=== PATIENT | male | born 1975 | race Two or more races ===

== ENCOUNTER 2021-11-15 14:20 | Emergency (ER) | payer OTHER ==
[~2021-11-15] VITALS: Ht 172.7 cm; Wt 59.0 kg
--- NOTE | 2021-11-15 14:48 | NUR ---
TO ER 18 AWAITING MD SANTORO,SECURITY CALLED FOR WANDING AND CONTRABAND REMOVAL,SITTER AT BEDSIDE.
--- NOTE | 2021-11-15 14:58 | NUR ---
COVID SWAB DONE AND SENT TO LAB
--- NOTE | 2021-11-15 14:58 | NUR ---
URINE COLLECTED AND SENT TO LAB
[2021-11-15] MEDS ORDERED: OLANZAPINE 10 MG VIAL IM ONE (15:03)
[2021-11-15] MEDS: OLANZAPINE 10 MG VIAL IM ONE (15:08)
[2021-11-15 15:31] LABS: BASOPHILS # (AUTO) 0.1 K/uL (0.0-0.2); BASOPHILS % (AUTO) 0.9 % (0.0-2.0); EOSINOPHILS % (AUTO) 13.3 % (0.0-6.0); HEMATOCRIT 42 % (39-51); HEMOGLOBIN 13.9 g/dL (13.5-17.5); LYMPHOCYTES # (AUTO) 2.6 K/uL (0.8-4.8); MEAN CORPUSCULAR HGB CONC 33 g/dl (31.0-36.0); MEAN CORPUSCULAR VOLUME 90 fL (80-96); MONOCYTES # (AUTO) 0.8 K/uL (0.1-1.30); MONOCYTES % (AUTO) 13.2 % (2.0-12.0); NEUTROPHILS % (AUTO) 31.6 % (43.0-81.0); PLATELET COUNT (AUTO) 332 K/uL (150-450); RED BLOOD CELL COUNT(AUTO) 4.67 MIL/uL (4.5-6.0); WHITE BLOOD COUNT (AUTO) 6.3 K/uL (4.3-11.0)
[2021-11-15 15:52] LABS: CARBON DIOXIDE 30 mmol/L (21-32); CHLORIDE 105 mmol/L (98-107); GLUCOSE 96 mg/dL (74-106); POTASSIUM 3.9 mmol/L (3.5-5.1); SODIUM SERUM 139 mmol/L (136-145); UREA NITROGEN, BLOOD 16 mg/dL (7-18)
[2021-11-15 15:58] LABS: ALANINE AMINOTRANSFERASE 25 U/L (12-78); ALBUMIN 3.4 g/dL (3.4-5.0); ALKALINE PHOSPHATASE 104 U/L (46-116); ASPARTATE AMINOTRANSFERASE 20 U/L (15-37); BILIRUBIN,DIRECT 0.1 mg/dL (0.0-0.2); BILIRUBIN,TOTAL 0.2 mg/dL (0.2-1.0)
[2021-11-15 16:01] LABS: ACETAMINOPHEN < 0 ug/ml (10-30); ALCOHOL, BLOOD < 3 mg/dL (0-0)
[2021-11-15 16:27] LABS: BILIRUBIN,URINE NEGATIVE (NEGATIVE); COLOR,URINE YELLOW (YELLOW); LEUKOCYTE ESTERASE ,URINE NEGATIVE (NEGATIVE); NITRITE, URINE NEGATIVE (NEGATIVE); PH,URINE 6.5 (5.0-8.0); PROTEIN,URINE NEGATIVE (NEGATIVE); UGLUCOSE NEGATIVE (NEGATIVE); UROBILINOGEN,URINE 0.2 EU/dL (0.2)
[2021-11-15 18:57] VITALS: BP 116/80
--- NOTE | 2021-11-15 19:40 | NUR ---
PT IS PICKED UP BY [facility]. ALL BELONGINGS AND PATIENT PACKETS GIVEN
== END 2021-11-15 19:41 ==
LOC: ER 14:26
DX: R44.0 Auditory hallucinations (principal); Z20.822 Contact with and (suspected) exposure to COVID-19; J45.909 Unspecified asthma, uncomplicated
CPT/HCPCS: 99285; 96372; 85025; 80048; 80076; 81003; 36415; 87426; 80143; 80320; 80307; J3490; C9803; G0480

== ENCOUNTER 2021-12-05 23:10 | Emergency (ER) | payer OTHER ==
[~2021-12-05] VITALS: Ht 172.7 cm; Wt 59.0 kg
--- NOTE | 2021-12-05 23:15 | NUR ---
BIBRA39. MID ABDOMINAL PAIN X 2 DAYS SHARP 01/26. -N/V/D. PT A/OX4. TOELRATING R/A WELL AT 95%. CONNECTED PT TO POX AND MONITOR. SAFETY MEASURES IN PLACE.
[2021-12-05] MEDS ORDERED: IV NS 0.9% 500 ML BAG IV ONE (23:30)
[2021-12-05] MEDS ORDERED: ONDANSETRON HCL/PF 4 MG/2 ML VIAL IVP ONE (23:30)
[2021-12-05] MEDS ORDERED: MORPHINE SULFATE INJ 2 MG/ML DISP.SYRIN IV ONE (23:30)
[2021-12-05] MEDS ORDERED: ONDANSETRON HCL/PF 4 MG/2 ML VIAL ONE (23:31)
[2021-12-05] MEDS ORDERED: MORPHINE SULFATE INJ 2 MG/ML DISP.SYRIN ONE (23:32)
--- NOTE | 2021-12-05 23:45 | NUR ---
BLOOD DRAWN AND SENT TO LAB
--- NOTE | 2021-12-05 23:55 | NUR ---
OFFERED PT URINAL; NOT ABLE TO URINATE AT THIS TIME. WILL F/U WITH URINE SAMPLE.
[2021-12-06] LABS: BASOPHILS # (AUTO) 0.1 K/uL (0.0-0.2); BASOPHILS % (AUTO) 0.8 % (0.0-2.0); EOSINOPHILS % (AUTO) 3.3 % (0.0-6.0); HEMATOCRIT 39 % (39-51); HEMOGLOBIN 13.3 g/dL (13.5-17.5); LYMPHOCYTES # (AUTO) 2.3 K/uL (0.8-4.8); LYMPHOCYTES % (AUTO) 28.1 % (20.0-44.0); MEAN CORPUSCULAR HGB CONC 34 g/dl (31.0-36.0); MEAN CORPUSCULAR VOLUME 88 fL (80-96); MONOCYTES # (AUTO) 0.8 K/uL (0.1-1.30); MONOCYTES % (AUTO) 9.9 % (2.0-12.0); NEUTROPHILS # (AUTO) 4.7 K/uL (1.8-8.9); NEUTROPHILS % (AUTO) 57.9 % (43.0-81.0); PLATELET COUNT (AUTO) 317 K/uL (150-450); RED BLOOD CELL COUNT(AUTO) 4.41 MIL/uL (4.5-6.0); WHITE BLOOD COUNT (AUTO) 8.1 K/uL (4.3-11.0)
[2021-12-06 00:10] LABS: CALCIUM, SERUM 8.6 mg/dL (8.5-10.1); CREATININE 1.2 mg/dL (0.6-1.3); POTASSIUM 4.1 mmol/L (3.5-5.1)
[2021-12-06 00:16] LABS: ALBUMIN 3.1 g/dL (3.4-5.0); BILIRUBIN,DIRECT 0.1 mg/dL (0.0-0.2); BILIRUBIN,TOTAL 0.4 mg/dL (0.2-1.0)
--- NOTE | 2021-12-06 01:13 | NUR ---
URINE COLLECTED AND SENT TO LAB
[2021-12-06 01:29] LABS: BILIRUBIN,URINE NEGATIVE (NEGATIVE); COLOR,URINE YELLOW (YELLOW); LEUKOCYTE ESTERASE ,URINE NEGATIVE (NEGATIVE); NITRITE, URINE NEGATIVE (NEGATIVE); PH,URINE 6.5 (5.0-8.0); PROTEIN,URINE TRACE mg/dl (NEGATIVE); UGLUCOSE NEGATIVE (NEGATIVE); UROBILINOGEN,URINE 0.2 EU/dL (0.2)
--- NOTE | 2021-12-06 01:30 | NUR ---
PT C/O OF S/I WITH NO SPECIFIC PLAN. PT CHANGED IN GOWN, BELONGINGS COLLECTED AND SENT TO LOCKER, WANDED BY SECURITY.
--- NOTE | 2021-12-06 01:33 | NUR ---
COVID ANTIGEN SWAB COLLECTED AND SENT TO LAB
[2021-12-06 01:35] LABS: BACTERIA,URINE Rare /HPF (None Seen); RBC,URINE 0-2 /HPF (0-2); SQUAMOUS EPITHELIAL CELL,UR Few /HPF (None Seen); WBC,URINE 0-2 /HPF (0-3)
[2021-12-06] MEDS ORDERED: AZITHROMYCIN 500 MG VIAL ONE (01:37)
[2021-12-06] MEDS ORDERED: CEFTRIAXONE 1GM BAG (ER ONLY) 50 ML IV ONE (01:37)
--- NOTE | 2021-12-06 01:56 | NUR ---
ROBOTICS MECHANIC AT PT'S BEDSIDE
[2021-12-06] MEDS ORDERED: AZITHROMYCIN 500 MG in IV D5W 250 ML IV ONE (02:00)
[2021-12-06] MEDS ORDERED: CEFTRIAXONE 1 G in IV D5W 50 ML IV ONE (02:00)
[2021-12-06 03:06] LABS: ACETAMINOPHEN 0 ug/ml (10-30); ALCOHOL, BLOOD < 3 mg/dL (0-0)
--- NOTE | 2021-12-06 04:50 | NUR ---
PER [facility] ([facility]) PATIENT ACCEPTED TO [facility] ROOM 4511 NUMBER FOR REPORT: [phone] EXT [phone] THEY WILL BE SETTING UP TRANSPORT WILL CALL BACK WHEN READY.
--- NOTE | 2021-12-06 05:24 | NUR ---
REPORT GIVEN TO RN AT [facility]
--- NOTE | 2021-12-06 07:20 | NUR ---
RECIVED PT FROM KATI RN PT AWAKE AND ALERT RESPIRATION SPONT AND EASY WITH ON ROM AIR
--- NOTE | 2021-12-06 08:25 | NUR ---
PT AWRE ABOUT TRANSFER O [facility] AND CONSENT FOR WAS SIGNED
--- NOTE | 2021-12-06 08:27 | NUR ---
COURTNEY FROM [facility] NURSING OFFICE NUMBER: [phone] AWAITING TRANSPO INFO FROM COMPUTATIONAL GENETICIST, WILL UPDATE [facility] FOR PATIENT ETA.
--- NOTE | 2021-12-06 08:43 | NUR ---
TRANSPORT ETA 1000 PER [facility] ([facility])
--- NOTE | 2021-12-06 09:20 | NUR ---
VS STABLE NO PAIN NO COGHING
[2021-12-06 10:10] VITALS: BP 100/66
--- NOTE | 2021-12-06 10:38 | NUR ---
TRNSFER TO [facility] STABLE VS NO SOB O2 SAT 98% WITH FIO2 2LNC WITH ALL BILONGING PT FULLY AWAKE AND ALERT
== END 2021-12-06 10:41 | disposition short-term general hospital (02) ==
LOC: ER 23:18
DX: J18.9 Pneumonia, unspecified organism (principal); I88.0 Nonspecific mesenteric lymphadenitis; Z20.822 Contact with and (suspected) exposure to COVID-19; J45.909 Unspecified asthma, uncomplicated
CPT/HCPCS: 99285; 96375; 74176; 85025; 80048; 83690; 80076; 36415 ×2; 85730; 96365; 96368; 71045; 87040 ×2; 83605; 81001; 87426; 80143; 80320; 80307; J2405; J7040; J2270; J0696; J7060; J0456; C9803; G0480

== ENCOUNTER 2021-12-08 22:51 | Emergency (ER) | payer OTHER ==
[~2021-12-08] VITALS: Ht 170.2 cm; Wt 65.8 kg
--- NOTE | 2021-12-08 23:08 | NUR ---
Patient caem in to the er c/o +SI "i want to run in front of the traffic", i want to go voluntary admission to [facility]. on room air, breathing evenly and unlabored. Kept comfortable, will continue to monitor accordingly.
[2021-12-08 23:11] VITALS: BP 128/88
--- NOTE | 2021-12-08 23:11 | NUR ---
security at bedside for wanding.
--- NOTE | 2021-12-08 23:13 | NUR ---
urine and covid swab collected and sent to lab.
[2021-12-08] MEDS ORDERED: OLANZAPINE 5 MG TABLET PO ONE (23:30)
[2021-12-08] MEDS ORDERED: OLANZAPINE 5 MG TABLET ONE (23:30)
[2021-12-08 23:48] LABS: BASOPHILS % (AUTO) 0.8 % (0.0-2.0); EOSINOPHILS % (AUTO) 13.5 % (0.0-6.0); HEMATOCRIT 38 % (39-51); HEMOGLOBIN 12.8 g/dL (13.5-17.5); LYMPHOCYTES # (AUTO) 1.9 K/uL (0.8-4.8); LYMPHOCYTES % (AUTO) 38.3 % (20.0-44.0); MEAN CORPUSCULAR HGB CONC 34 g/dl (31.0-36.0); MEAN CORPUSCULAR VOLUME 88 fL (80-96); MONOCYTES # (AUTO) 0.8 K/uL (0.1-1.30); MONOCYTES % (AUTO) 16.6 % (2.0-12.0); NEUTROPHILS # (AUTO) 1.6 K/uL (1.8-8.9); NEUTROPHILS % (AUTO) 30.8 % (43.0-81.0); PLATELET COUNT (AUTO) 353 K/uL (150-450); RED BLOOD CELL COUNT(AUTO) 4.32 MIL/uL (4.5-6.0); WHITE BLOOD COUNT (AUTO) 5.1 K/uL (4.3-11.0)
[2021-12-08 23:57] LABS: BILIRUBIN,URINE NEGATIVE (NEGATIVE); COLOR,URINE YELLOW (YELLOW); LEUKOCYTE ESTERASE ,URINE NEGATIVE (NEGATIVE); NITRITE, URINE NEGATIVE (NEGATIVE); PROTEIN,URINE NEGATIVE (NEGATIVE); UGLUCOSE NEGATIVE (NEGATIVE); UROBILINOGEN,URINE 0.2 EU/dL (0.2)
[2021-12-09 00:12] LABS: ALANINE AMINOTRANSFERASE 23 U/L (12-78); ALBUMIN 3.1 g/dL (3.4-5.0); ALCOHOL, BLOOD 24 mg/dL (0-0); ALKALINE PHOSPHATASE 92 U/L (46-116); ASPARTATE AMINOTRANSFERASE 18 U/L (15-37); BILIRUBIN,DIRECT 0.1 mg/dL (0.0-0.2); BILIRUBIN,TOTAL 0.4 mg/dL (0.2-1.0); CALCIUM, SERUM 8.6 mg/dL (8.5-10.1); CARBON DIOXIDE 30 mmol/L (21-32); CHLORIDE 99 mmol/L (98-107); CREATININE 1.1 mg/dL (0.6-1.3); GLUCOSE 67 mg/dL (74-106); POTASSIUM 3.4 mmol/L (3.5-5.1); SODIUM SERUM 135 mmol/L (136-145); TOTAL PROTEIN, SERUM 8.6 g/dL (6.4-8.2); UREA NITROGEN, BLOOD 16 mg/dL (7-18)
[2021-12-09 00:13] LABS: ACETAMINOPHEN < 2 ug/ml (10-30)
--- NOTE | 2021-12-09 01:23 | NUR ---
FAXED CLINICALS AND FACE SHEET TO [facility]
--- NOTE | 2021-12-09 02:57 | NUR ---
PER MOMO AT INTAKE, PT IS ACCEPTED AT [facility] UNDER CARE OF DR BAXTER. # FOR REPORT: [phone]
--- NOTE | 2021-12-09 03:00 | NUR ---
[facility] ETA:20 MIN
--- NOTE | 2021-12-09 03:06 | NUR ---
REPORT GIVEN TO MEGAN IN UNIT ONE AT [facility]
--- NOTE | 2021-12-09 04:05 | NUR ---
PT WAS PICKED UP BY [facility] AND TRANSFERRED TO [facility] IN STABLE CONDITION. BELONGINGS WERE PICKED UP
== END 2021-12-09 04:17 ==
LOC: ER 22:53
DX: R45.851 Suicidal ideations (principal); F15.10 Other stimulant abuse, uncomplicated; Z20.822 Contact with and (suspected) exposure to COVID-19; F31.9 Bipolar disorder, unspecified; F25.9 Schizoaffective disorder, unspecified; J45.909 Unspecified asthma, uncomplicated; Z87.01 Personal history of pneumonia (recurrent); Z87.898 Personal history of other specified conditions
CPT/HCPCS: 99285; 71045; 85025; 80048; 80076; 81003; 36415; 87426; 80143; 80320; 80307; C9803; G0480

== ENCOUNTER 2022-01-04 20:13 | Emergency (ER) | payer OTHER ==
[~2022-01-04] VITALS: Ht 170.2 cm; Wt 63.5 kg
--- NOTE | 2022-01-04 20:35 | NUR ---
PATIENT BIBSELF C/O FEELING DEPRESSED WANTS VOL PSYCH ADMIT. -SI/HI. PT IS A/O X 4, RR EVEN AND UNLABORED, NO SOB NOTES, PT IN NO ACUTE DISTRESS. PT IS AFEBRILE. PT TAKEN TO ER BED 18, WANDED BY SECURITY. BELONGINGS TAKEN AND PLACED IN LOCKER. PATIENT PLACED IN HOSPITAL GOWN. WILL CONTINUE TO MONITOR.
--- NOTE | 2022-01-04 20:43 | NUR ---
COVID SWAB SENT TO LAB
--- NOTE | 2022-01-04 20:43 | NUR ---
URINE COLLECTED SENT TO LAB
[2022-01-04 21:13] LABS: BASOPHILS # (AUTO) 0.1 K/uL (0.0-0.2); EOSINOPHILS % (AUTO) 13.6 % (0.0-6.0); HEMATOCRIT 37 % (39-51); HEMOGLOBIN 12.2 g/dL (13.5-17.5); LYMPHOCYTES # (AUTO) 1.8 K/uL (0.8-4.8); LYMPHOCYTES % (AUTO) 32.3 % (20.0-44.0); MEAN CORPUSCULAR HGB CONC 33 g/dl (31.0-36.0); MEAN CORPUSCULAR VOLUME 90 fL (80-96); MONOCYTES # (AUTO) 0.7 K/uL (0.1-1.30); MONOCYTES % (AUTO) 12.1 % (2.0-12.0); NEUTROPHILS # (AUTO) 2.3 K/uL (1.8-8.9); PLATELET COUNT (AUTO) 350 K/uL (150-450); RED BLOOD CELL COUNT(AUTO) 4.07 MIL/uL (4.5-6.0); WHITE BLOOD COUNT (AUTO) 5.5 K/uL (4.3-11.0)
[2022-01-04 21:35] LABS: BILIRUBIN,URINE NEGATIVE (NEGATIVE); COLOR,URINE YELLOW (YELLOW); LEUKOCYTE ESTERASE ,URINE NEGATIVE (NEGATIVE); NITRITE, URINE NEGATIVE (NEGATIVE); PROTEIN,URINE TRACE mg/dl (NEGATIVE); UGLUCOSE NEGATIVE (NEGATIVE)
[2022-01-04 21:39] LABS: CALCIUM, SERUM 8.8 mg/dL (8.5-10.1); CARBON DIOXIDE 29 mmol/L (21-32); CHLORIDE 107 mmol/L (98-107); CREATININE 0.9 mg/dL (0.6-1.3); GLUCOSE 89 mg/dL (74-106); POTASSIUM 3.5 mmol/L (3.5-5.1); SODIUM SERUM 141 mmol/L (136-145); UREA NITROGEN, BLOOD 14 mg/dL (7-18)
[2022-01-04 21:44] LABS: ALANINE AMINOTRANSFERASE 25 U/L (12-78); ALBUMIN 2.8 g/dL (3.4-5.0); ALKALINE PHOSPHATASE 93 U/L (46-116); ASPARTATE AMINOTRANSFERASE 25 U/L (15-37); BILIRUBIN,TOTAL 0.2 mg/dL (0.2-1.0); TOTAL PROTEIN, SERUM 7.7 g/dL (6.4-8.2)
[2022-01-04 21:45] LABS: ACETAMINOPHEN < 2 ug/ml (10-30); ALCOHOL, BLOOD < 3 mg/dL (0-0)
[2022-01-04 22:11] LABS: BACTERIA,URINE None seen /HPF (None Seen); MUCUS,URINE Few /LPF (None Seen); RBC,URINE 0-2 /HPF (0-2); SQUAMOUS EPITHELIAL CELL,UR 0-2 /HPF (None Seen); WBC,URINE 0-2 /HPF (0-3)
--- NOTE | 2022-01-04 22:25 | NUR ---
FACESHEET AND CLINICALS FAXED TO [facility].
--- NOTE | 2022-01-04 23:49 | NUR ---
RECEIVED CALL FROM FROM [facility] . PATIENT IS ACCEPTED AT [facility]. ACCEPTING MD IS DR BAXTER. GIVE REPORT TO FACILITY ON # [phone].
--- NOTE | 2022-01-04 23:54 | NUR ---
[facility] CALLED FOR TRANSPORT. ETA [phone]
--- NOTE | 2022-01-05 03:30 | NUR ---
CALL FROM [facility]. NEW ETA [phone]
--- NOTE | 2022-01-05 04:13 | NUR ---
REPORT GIVEN TO NEFTALI JOHNSON FOR CONTINUATION OF CARE.
--- NOTE | 2022-01-05 05:52 | NUR ---
[facility] AT BEDSIDE FOR TRANSPORT TO [facility]
[2022-01-05 06:00] VITALS: BP 122/66
== END 2022-01-05 06:00 ==
LOC: ER 20:13
DX: R45.851 Suicidal ideations (principal); Z20.822 Contact with and (suspected) exposure to COVID-19; J45.909 Unspecified asthma, uncomplicated; F31.9 Bipolar disorder, unspecified; F20.9 Schizophrenia, unspecified
CPT/HCPCS: 99285; 85025; 80048; 80076; 81001; 36415; 87426; 80143; 80320; 80307; C9803; G0480

== ENCOUNTER 2022-01-25 10:13 | Emergency (ER) | payer OTHER ==
[~2022-01-25] VITALS: Ht 172.7 cm; Wt 59.0 kg
[2022-01-25 10:27] VITALS: BP 107/74
[2022-01-25 10:43] LABS: BILIRUBIN,URINE NEGATIVE (NEGATIVE); COLOR,URINE YELLOW (YELLOW); LEUKOCYTE ESTERASE ,URINE NEGATIVE (NEGATIVE); NITRITE, URINE NEGATIVE (NEGATIVE); PH,URINE 6.5 (5.0-8.0); PROTEIN,URINE NEGATIVE (NEGATIVE); UGLUCOSE NEGATIVE (NEGATIVE); UROBILINOGEN,URINE 0.2 EU/dL (0.2)
[2022-01-25 10:57] LABS: BASOPHILS # (AUTO) 0.2 K/uL (0.0-0.2); BASOPHILS % (AUTO) 3.2 % (0.0-2.0); EOSINOPHILS % (AUTO) 16.3 % (0.0-6.0); HEMATOCRIT 38 % (39-51); HEMOGLOBIN 12.8 g/dL (13.5-17.5); LYMPHOCYTES # (AUTO) 2.1 K/uL (0.8-4.8); LYMPHOCYTES % (AUTO) 37.5 % (20.0-44.0); MEAN CORPUSCULAR HGB CONC 34 g/dl (31.0-36.0); MEAN CORPUSCULAR VOLUME 90 fL (80-96); MONOCYTES # (AUTO) 0.6 K/uL (0.1-1.30); MONOCYTES % (AUTO) 11.3 % (2.0-12.0); NEUTROPHILS # (AUTO) 1.8 K/uL (1.8-8.9); NEUTROPHILS % (AUTO) 31.7 % (43.0-81.0); PLATELET COUNT (AUTO) 288 K/uL (150-450); RED BLOOD CELL COUNT(AUTO) 4.22 MIL/uL (4.5-6.0); WHITE BLOOD COUNT (AUTO) 5.7 K/uL (4.3-11.0)
[2022-01-25 10:59] LABS: ALANINE AMINOTRANSFERASE 21 U/L (12-78); ALBUMIN 3.1 g/dL (3.4-5.0); ALCOHOL, BLOOD < 3 mg/dL (0-0); ALKALINE PHOSPHATASE 90 U/L (46-116); ASPARTATE AMINOTRANSFERASE 18 U/L (15-37); BILIRUBIN,DIRECT 0.1 mg/dL (0.0-0.2); BILIRUBIN,TOTAL 0.3 mg/dL (0.2-1.0); CALCIUM, SERUM 8.4 mg/dL (8.5-10.1); CARBON DIOXIDE 27 mmol/L (21-32); CHLORIDE 106 mmol/L (98-107); GLUCOSE 104 mg/dL (74-106); POTASSIUM 3.7 mmol/L (3.5-5.1); SODIUM SERUM 140 mmol/L (136-145); TOTAL PROTEIN, SERUM 7.8 g/dL (6.4-8.2); UREA NITROGEN, BLOOD 9 mg/dL (7-18)
[2022-01-25 11:01] LABS: ACETAMINOPHEN 0 ug/ml (10-30)
[2022-01-25] MEDS: ARIPIPRAZOLE 5 MG TABLET PO ONE (11:12)
--- NOTE | 2022-01-25 12:04 | NUR ---
BIB SELF , C/O DEPRESSION , HIT OF SCHIZO/BIPOLAR
--- NOTE | 2022-01-25 12:23 | NUR ---
FAXED CLINICALS TO [facility]TA[facility].
--- NOTE | 2022-01-25 22:06 | NUR ---
FAXED PT CLINICALS TO [facility] FAX# [phone]
--- NOTE | 2022-01-25 22:15 | NUR ---
RECEIVED A CALL FROM [facility] WITH [facility]. V/S AND COVID SWAB RESULT WILL BE SENT TO THEM. FAX # GIVEN TO JOSE ANGEL HIGGINBOTHAM.
--- NOTE | 2022-01-25 23:39 | NUR ---
SPOKE TO JAROCHO ([phone]) FROM [facility] FOR PATIENT ACCEPTANCE INFO. PT WILL BE UNDER THE CARE OF DR. ELISE; ALEX BURCIAGA COMPUTER AIDEALEX CALVIN. FOR REPORT, CALL: [phone] [phone]
--- NOTE | 2022-01-26 01:57 | NUR ---
[facility] ETA 75-90 MIN.
--- NOTE | 2022-01-26 02:57 | NUR ---
REPORT GIVEN TO ALEA JOHNSON FROM [facility] FOR [facility]
--- NOTE | 2022-01-26 02:57 | NUR ---
[facility] AT PT'S BEDSIDE TO TRANSFER PT TO [facility]. REPORT GIVEN TO [facility] EMT
== END 2022-01-26 02:57 ==
LOC: ER 10:15
DX: R45.851 Suicidal ideations (principal); F20.9 Schizophrenia, unspecified; F31.9 Bipolar disorder, unspecified; F15.10 Other stimulant abuse, uncomplicated; J45.909 Unspecified asthma, uncomplicated; D64.9 Anemia, unspecified; Z20.822 Contact with and (suspected) exposure to COVID-19
CPT/HCPCS: 99285; 85025; 80048; 80076; 81003; 36415; 87426; 80143; 80320; 80307; C9803; G0480

== ENCOUNTER 2022-05-17 23:45 | Emergency (ER) | payer OTHER ==
[~2022-05-17] VITALS: Ht 172.7 cm; Wt 59.0 kg
--- NOTE | 2022-05-18 00:32 | NUR ---
BIBS FOR MEDICAL CLEARANCE SEEKING VOLUNTARY ADMISSION TO PSYCH FACILITY DENIES S/I H/I. PATIENT ALERT AND ORIENTED X3. AMBULATORY WITH NON LABORED BREATHING. ALL BELONGINGS COLLECTED AND PLACED IN LOCKER. SECURITY CALLED FOR WANDING.
--- NOTE | 2022-05-18 00:33 | NUR ---
COVID SWAB DONE AND SENT TO LAB
--- NOTE | 2022-05-18 00:33 | NUR ---
URINE COLLECTED AND SENT TO LAB
[2022-05-18 00:45] LABS: BILIRUBIN,URINE NEGATIVE (NEGATIVE); COLOR,URINE YELLOW (YELLOW); LEUKOCYTE ESTERASE ,URINE NEGATIVE (NEGATIVE); NITRITE, URINE NEGATIVE (NEGATIVE); PROTEIN,URINE NEGATIVE (NEGATIVE); UGLUCOSE NEGATIVE (NEGATIVE)
[2022-05-18 00:54] LABS: BACTERIA,URINE Rare /HPF (None Seen); RBC,URINE 0-2 /HPF (0-2); SQUAMOUS EPITHELIAL CELL,UR Few /HPF (None Seen); WBC,URINE 0-2 /HPF (0-3)
[2022-05-18 01:58] LABS: CALCIUM, SERUM 8.6 mg/dL (8.5-10.1); CARBON DIOXIDE 30 mmol/L (21-32); CHLORIDE 105 mmol/L (98-107); CREATININE 1.1 mg/dL (0.6-1.3); GLUCOSE 111 mg/dL (74-106); POTASSIUM 3.5 mmol/L (3.5-5.1); SODIUM SERUM 140 mmol/L (136-145); UREA NITROGEN, BLOOD 10 mg/dL (7-18)
[2022-05-18 02:02] LABS: BASOPHILS # (AUTO) 0.1 K/uL (0.0-0.2); BASOPHILS % (AUTO) 1.4 % (0.0-2.0); EOSINOPHILS % (AUTO) 15.3 % (0.0-6.0); HEMATOCRIT 37 % (39-51); HEMOGLOBIN 12.3 g/dL (13.5-17.5); LYMPHOCYTES # (AUTO) 2.1 K/uL (0.8-4.8); LYMPHOCYTES % (AUTO) 37.6 % (20.0-44.0); MEAN CORPUSCULAR HGB CONC 33 g/dl (31.0-36.0); MEAN CORPUSCULAR VOLUME 88 fL (80-96); MONOCYTES # (AUTO) 0.6 K/uL (0.1-1.30); MONOCYTES % (AUTO) 10.9 % (2.0-12.0); NEUTROPHILS % (AUTO) 34.8 % (43.0-81.0); PLATELET COUNT (AUTO) 310 K/uL (150-450); RED BLOOD CELL COUNT(AUTO) 4.18 MIL/uL (4.5-6.0); WHITE BLOOD COUNT (AUTO) 5.7 K/uL (4.3-11.0)
[2022-05-18 02:03] LABS: ALANINE AMINOTRANSFERASE 20 U/L (12-78); ALCOHOL, BLOOD < 3 mg/dL (0-0); ALKALINE PHOSPHATASE 89 U/L (46-116); ASPARTATE AMINOTRANSFERASE 24 U/L (15-37); BILIRUBIN,DIRECT 0.1 mg/dL (0.0-0.2); BILIRUBIN,TOTAL 0.3 mg/dL (0.2-1.0); TOTAL PROTEIN, SERUM 7.9 g/dL (6.4-8.2)
[2022-05-18 02:04] LABS: ACETAMINOPHEN 0 ug/ml (10-30)
--- NOTE | 2022-05-18 03:08 | NUR ---
FACE SHEET AND CLINICALS FAXED TO [facility]
--- NOTE | 2022-05-18 04:04 | NUR ---
PT SLEEPING. RR EVEN AND NONLABORED
--- NOTE | 2022-05-18 06:06 | NUR ---
FAXED FACE SHEET AND CLINICALS TO [phone] PER AB'S REQUEST AT [facility] INTAKE
--- NOTE | 2022-05-18 06:22 | NUR ---
PETE HILL AT [facility] INTAKE, PT GOT ACCEPTED AT [facility] AT [place] BY DR BAXTER. P/U AT 0830. REPORT TO BE GIVEN TO [phone]
--- NOTE | 2022-05-18 06:22 | NUR ---
FAXED FACE SHEET TO [facility] AT [phone]
--- NOTE | 2022-05-18 06:35 | NUR ---
CALLED [facility] FOR REPORT X3 FOR REPORT; NO ADDING MACHINE OPERATOR
--- NOTE | 2022-05-18 07:09 | NUR ---
REPORT GIVEN TO JIMMY JUÁREZ RN FOR [facility]
--- NOTE | 2022-05-18 09:03 | NUR ---
picked up by transport
[2022-05-18 09:12] VITALS: BP 124/75
== END 2022-05-18 09:13 ==
LOC: ER 23:47
DX: Z02.2 Encounter for examination for admission to residential institution (principal); F31.9 Bipolar disorder, unspecified; Z91.14 Patient's other noncompliance with medication regimen; F20.9 Schizophrenia, unspecified; J45.909 Unspecified asthma, uncomplicated; Z20.822 Contact with and (suspected) exposure to COVID-19; D64.9 Anemia, unspecified
CPT/HCPCS: 99285; 85025; 80048; 80076; 81001; 36415; 87426; 80143; 80320; 80307; C9803; G0480

== ENCOUNTER 2022-05-30 04:14 | Emergency (ER) | payer OTHER ==
[~2022-05-30] VITALS: Ht 172.7 cm; Wt 59.0 kg
--- NOTE | 2022-05-30 06:17 | NUR ---
[facility] FOR MEDICAL CLEARANCE FOR VOLUNTARY PSYCH CLEARANCE. C/O OF HEARING VOICES TELLING HIM TO KILL HIMSELF WITH NO SPECIFIC PLAN. PT TAKES ZYPREXA, REMERON, AND ABILIFY FOR BIPOLAR DX, SCHIZOPHRENIA, AND DEPRESSION AND HAS RAN OUT OF MEDS X2 WEEKS. PT ORIENTED X4 NORMAL MOOD AND AFFECT CALL AND COOPERATIVE AT TRIAGE. PT CHANGED INTO GOWN AND BELONGINGS PLACED IN LOCKERS WANDED AND CLEARD BY SECURITY. URINE COLLECTED AND SENT TO LAB. SAFETY PRECAUTIONS IN PLACE.
[2022-05-30 06:33] LABS: BILIRUBIN,URINE NEGATIVE (NEGATIVE); COLOR,URINE YELLOW (YELLOW); LEUKOCYTE ESTERASE ,URINE NEGATIVE (NEGATIVE); NITRITE, URINE NEGATIVE (NEGATIVE); PROTEIN,URINE NEGATIVE (NEGATIVE); UGLUCOSE NEGATIVE (NEGATIVE); UROBILINOGEN,URINE 0.2 EU/dL (0.2)
[2022-05-30 06:37] LABS: BASOPHILS % (AUTO) 0.4 % (0.0-2.0); EOSINOPHILS % (AUTO) 22.3 % (0.0-6.0); HEMATOCRIT 37 % (39-51); HEMOGLOBIN 12.4 g/dL (13.5-17.5); LYMPHOCYTES # (AUTO) 2.5 K/uL (0.8-4.8); LYMPHOCYTES % (AUTO) 40.7 % (20.0-44.0); MEAN CORPUSCULAR HGB CONC 34 g/dl (31.0-36.0); MEAN CORPUSCULAR VOLUME 90 fL (80-96); MONOCYTES # (AUTO) 0.7 K/uL (0.1-1.30); MONOCYTES % (AUTO) 12.3 % (2.0-12.0); NEUTROPHILS # (AUTO) 1.5 K/uL (1.8-8.9); NEUTROPHILS % (AUTO) 24.3 % (43.0-81.0); PLATELET COUNT (AUTO) 340 K/uL (150-450); RED BLOOD CELL COUNT(AUTO) 4.13 MIL/uL (4.5-6.0); WHITE BLOOD COUNT (AUTO) 6.1 K/uL (4.3-11.0)
[2022-05-30 06:51] LABS: ALANINE AMINOTRANSFERASE 25 U/L (12-78); ALBUMIN 2.8 g/dL (3.4-5.0); ALKALINE PHOSPHATASE 103 U/L (46-116); ASPARTATE AMINOTRANSFERASE 17 U/L (15-37); BILIRUBIN,DIRECT 0.1 mg/dL (0.0-0.2); BILIRUBIN,TOTAL 0.2 mg/dL (0.2-1.0); CALCIUM, SERUM 8.2 mg/dL (8.5-10.1); CARBON DIOXIDE 25 mmol/L (21-32); CHLORIDE 106 mmol/L (98-107); GLUCOSE 127 mg/dL (74-106); POTASSIUM 3.4 mmol/L (3.5-5.1); SODIUM SERUM 138 mmol/L (136-145); TOTAL PROTEIN, SERUM 7.8 g/dL (6.4-8.2); UREA NITROGEN, BLOOD 7 mg/dL (7-18)
[2022-05-30 06:55] LABS: BACTERIA,URINE Rare /HPF (None Seen); SQUAMOUS EPITHELIAL CELL,UR Few /HPF (None Seen); WBC,URINE 0-2 /HPF (0-3)
[2022-05-30 06:56] LABS: ACETAMINOPHEN < 10 ug/ml (10-30); ALCOHOL, BLOOD < 3 mg/dL (0-0)
--- NOTE | 2022-05-30 08:39 | NUR ---
FAXED CLINICALS TO [facility]
--- NOTE | 2022-05-30 09:21 | NUR ---
Patient discharged to [facility] in stable condition accompanied by private transportation. Written and verbal after care instructions given. Patient verbalizes understanding of instruction.
--- NOTE | 2022-05-30 09:22 | NUR ---
ALL BELONGINGS GIVEN BACK TO PATIENT.
--- NOTE | 2022-05-30 09:22 | NUR ---
All belongings returned to pt.
[2022-05-30 09:24] VITALS: BP 127/85
[2022-05-30 18:00] LABS: EOSINOPHILS % (MANUAL) 25 % (0-4); LYMPHOCYTES % (MANUAL) 38 % (16-48); MONOCYTES % (MANUAL) 13 % (0-11.0); NEUTROPHILS % (MANUAL) 23 (42-76); REACTIVE LYMPHOCYTES 1 % (0-0)
== END 2022-05-30 09:25 ==
LOC: ER 04:16
DX: R45.851 Suicidal ideations (principal); F15.10 Other stimulant abuse, uncomplicated; J45.909 Unspecified asthma, uncomplicated; F31.9 Bipolar disorder, unspecified; Z20.822 Contact with and (suspected) exposure to COVID-19
CPT/HCPCS: 99285; 85025; 80048; 80076; 85007; 81001; 36415; 87426; 80143; 80320; 80307; C9803; G0480

== ENCOUNTER 2022-06-04 07:33 | Emergency (ER) | payer OTHER ==
[~2022-06-04] VITALS: Ht 172.7 cm; Wt 59.0 kg
--- NOTE | 2022-06-04 08:00 | NUR ---
SECURITY CALLED FOR WANDING
--- NOTE | 2022-06-04 08:13 | NUR ---
[facility] AT BEDSIDE FOR BLOOD DRAW
--- NOTE | 2022-06-04 08:32 | NUR ---
COVID SWAB COLLECTED AND SENT TO LAB
[2022-06-04 08:34] LABS: ALANINE AMINOTRANSFERASE 22 U/L (12-78); ALBUMIN 3.2 g/dL (3.4-5.0); ALCOHOL, BLOOD < 3 mg/dL (0-0); ALKALINE PHOSPHATASE 106 U/L (46-116); ASPARTATE AMINOTRANSFERASE 19 U/L (15-37); BILIRUBIN,DIRECT 0.1 mg/dL (0.0-0.2); BILIRUBIN,TOTAL 0.3 mg/dL (0.2-1.0); CARBON DIOXIDE 29 mmol/L (21-32); CHLORIDE 106 mmol/L (98-107); CREATININE 1.1 mg/dL (0.6-1.3); GLUCOSE 90 mg/dL (74-106); SODIUM SERUM 139 mmol/L (136-145); TOTAL PROTEIN, SERUM 8.7 g/dL (6.4-8.2); UREA NITROGEN, BLOOD 12 mg/dL (7-18)
[2022-06-04 08:43] LABS: BASOPHILS # (AUTO) 0.1 K/uL (0.0-0.2); BASOPHILS % (AUTO) 1.1 % (0.0-2.0); HEMATOCRIT 40 % (39-51); HEMOGLOBIN 13.4 g/dL (13.5-17.5); LYMPHOCYTES # (AUTO) 2.9 K/uL (0.8-4.8); LYMPHOCYTES % (AUTO) 39.4 % (20.0-44.0); MEAN CORPUSCULAR HGB CONC 33 g/dl (31.0-36.0); MEAN CORPUSCULAR VOLUME 90 fL (80-96); MONOCYTES # (AUTO) 1.2 K/uL (0.1-1.30); MONOCYTES % (AUTO) 15.8 % (2.0-12.0); NEUTROPHILS % (AUTO) 26.7 % (43.0-81.0); PLATELET COUNT (AUTO) 394 K/uL (150-450); RED BLOOD CELL COUNT(AUTO) 4.48 MIL/uL (4.5-6.0); WHITE BLOOD COUNT (AUTO) 7.5 K/uL (4.3-11.0)
--- NOTE | 2022-06-04 08:44 | NUR ---
Urine sample collected and sent to lab.
[2022-06-04 09:45] LABS: BILIRUBIN,URINE NEGATIVE (NEGATIVE); COLOR,URINE YELLOW (YELLOW); LEUKOCYTE ESTERASE ,URINE NEGATIVE (NEGATIVE); NITRITE, URINE NEGATIVE (NEGATIVE); PH,URINE 6.5 (5.0-8.0); PROTEIN,URINE TRACE mg/dl (NEGATIVE); UGLUCOSE NEGATIVE (NEGATIVE); UROBILINOGEN,URINE 0.2 EU/dL (0.2)
[2022-06-04 10:47] LABS: BACTERIA,URINE None seen /HPF (None Seen); RBC,URINE 0-2 /HPF (0-2); SPERM,URINE Moderate /HPF (None Seen); SQUAMOUS EPITHELIAL CELL,UR None Seen /HPF (None Seen); WBC,URINE NONE SEEN /HPF (0-3)
--- NOTE | 2022-06-04 12:20 | NUR ---
PT ACCEPTED TO [facility] UNDER DR. BAXTER PLEASE CALL [phone] FOR REPORT SWEAT BOX ATTENDANT WILL SENIOR STEREO COMPILER TEAM LEAD AT 1300
--- NOTE | 2022-06-04 12:51 | NUR ---
ATTEMPTED TO GIVE REPORT AT [phone]; LEFT VOICE MESSAGE
--- NOTE | 2022-06-04 12:51 | NUR ---
Patient discharged to [facility] in stable condition accompanied by transporter. Written and verbal after care instructions given. Patient verbalizes understanding of instruction.
[2022-06-04 12:53] VITALS: BP 120/76
[2022-06-04 13:24] LABS: EOSINOPHILS % (MANUAL) 19 % (0-4); LYMPHOCYTES % (MANUAL) 38 % (16-48); MONOCYTES % (MANUAL) 15 % (0-11.0); NEUTROPHILS % (MANUAL) 28 (42-76)
== END 2022-06-04 12:53 ==
LOC: ER 07:40
DX: R45.851 Suicidal ideations (principal); Z20.822 Contact with and (suspected) exposure to COVID-19; F31.9 Bipolar disorder, unspecified; J45.909 Unspecified asthma, uncomplicated
CPT/HCPCS: 99285; 85025; 80048; 80076; 85007; 81001; 36415; 87426; 80143; 80320; 80307; C9803; G0480

== ENCOUNTER 2023-09-25 01:52 | Emergency (ER) | payer OTHER ==
[~2023-09-25] VITALS: Ht 170.2 cm; Wt 63.5 kg
[2023-09-25 03:54] VITALS: TEMP 98.1
[2023-09-25 04:49] LABS: BASOPHILS # (AUTO) 0.1 K/uL (0.0-0.2); BASOPHILS % (AUTO) 2.2 % (0.0-2.0); EOSINOPHILS # (AUTO) 0.6 K/uL (0.0-0.7); EOSINOPHILS % (AUTO) 12.9 % (0.0-6.0); HEMATOCRIT 35 % (39-51); HEMOGLOBIN 11.9 g/dL (13.5-17.5); LYMPHOCYTES # (AUTO) 1.9 K/uL (0.8-4.8); LYMPHOCYTES % (AUTO) 43.7 % (20.0-44.0); MEAN CORPUSCULAR HEMOGLOBIN 31 PG (26.0-33.0); MEAN CORPUSCULAR HGB CONC 34 g/dl (31.0-36.0); MEAN CORPUSCULAR VOLUME 90 fL (80-96); MONOCYTES # (AUTO) 0.6 K/uL (0.1-1.30); NEUTROPHILS # (AUTO) 1.2 K/uL (1.8-8.9); NEUTROPHILS % (AUTO) 27.2 % (43.0-81.0); PLATELET COUNT (AUTO) 289 K/uL (150-450); RED BLOOD CELL COUNT(AUTO) 3.88 MIL/uL (4.5-6.0); WHITE BLOOD COUNT (AUTO) 4.4 K/uL (4.3-11.0)
[2023-09-25 04:56] LABS: CALCIUM, SERUM 8.8 mg/dL (8.5-10.1); CARBON DIOXIDE 27 mmol/L (21-32); CHLORIDE 106 mmol/L (98-107); GLUCOSE 111 mg/dL (74-106); POTASSIUM 3.2 mmol/L (3.5-5.1); SODIUM SERUM 141 mmol/L (136-145); UREA NITROGEN, BLOOD 8 mg/dL (7-18)
[2023-09-25 04:59] LABS: APPEARANCE,URINE CLEAR (CLEAR); BILIRUBIN,URINE NEGATIVE (NEGATIVE); BLOOD, URINE NEGATIVE Ery/uL (NEGATIVE); COLOR,URINE YELLOW (YELLOW); KETONES,URINE TRACE mg/dL (NEGATIVE); LEUKOCYTE ESTERASE ,URINE NEGATIVE (NEGATIVE); NITRITE, URINE NEGATIVE (NEGATIVE); PH,URINE 6.5 (5.0-8.0); PROTEIN,URINE TRACE mg/dl (NEGATIVE); UGLUCOSE NEGATIVE (NEGATIVE); UROBILINOGEN,URINE 0.2 EU/dL (0.2)
[2023-09-25 05:01] LABS: ADD URINE CULTURE NO; BACTERIA,URINE Rare /HPF (None Seen); RBC,URINE 0-2 /HPF (0-2); SQUAMOUS EPITHELIAL CELL,UR Few /HPF (None Seen); WBC,URINE 0-2 /HPF (0-3)
[2023-09-25 05:02] LABS: BARBITURATE, URINE NEGATIVE (NEGATIVE); BENZODIAZEPINE, URINE NEGATIVE (NEGATIVE); CANNABINOID, URINE NEGATIVE (NEGATIVE); COCCAINE, URINE NEGATIVE (NEGATIVE); OPIATE, URINE NEGATIVE (NEGATIVE); PHENCYCLIDINE SCREEN,URINE NEGATIVE (NEGATIVE)
[2023-09-25 05:02] LABS: ALANINE AMINOTRANSFERASE 24 U/L (12-78); ALBUMIN 2.7 g/dL (3.4-5.0); ALCOHOL, BLOOD < 3 mg/dL (0-10); ALKALINE PHOSPHATASE 109 U/L (46-116); ASPARTATE AMINOTRANSFERASE 33 U/L (15-37); BILIRUBIN,TOTAL 0.5 mg/dL (0.2-1.0); SALICYLATE 1.3 mg/dL (2.8-20.0); TOTAL PROTEIN, SERUM 8.5 g/dL (6.4-8.2)
[2023-09-25 05:03] LABS: ACETAMINOPHEN <10 ug/ml (10-30)
[2023-09-25 05:03] LABS: AMPHETAMINE, URINE POSITIVE (NEGATIVE)
[2023-09-25] MEDS ORDERED: POTASSIUM CHLORIDE 20 MEQ TAB.PRT.SR PO ONE (05:46)
[2023-09-25] MEDS: POTASSIUM CHLORIDE 20 MEQ TAB.PRT.SR PO ONE (05:47)
[2023-09-25 09:47] VITALS: BP 133/80; O2SAT 98
== END 2023-09-25 09:48 | disposition left against medical advice (07) ==
LOC: ER 01:59
DX: Z04.6 Encounter for general psychiatric examination, requested by authority (principal); J45.909 Unspecified asthma, uncomplicated; F31.9 Bipolar disorder, unspecified; F20.9 Schizophrenia, unspecified; Z20.822 Contact with and (suspected) exposure to COVID-19
CPT/HCPCS: 36415; 80053-TC; 81001; 85025-TC; G0480

== ENCOUNTER 2024-10-18 10:23 | Emergency (ER) | payer MEDICAID, OTHER ==
[~2024-10-18] VITALS: Ht 167.6 cm; Wt 61.2 kg
[2024-10-18 10:50] LABS: PLATELET COUNT (AUTO) 393 K/uL (150-450); RED BLOOD CELL COUNT(AUTO) 4.17 MIL/uL (4.5-6.0); RED CELL DISTRIBUTION WIDTH 15.8 % (11.5-15.0); WHITE BLOOD COUNT (AUTO) 5.8 K/uL (4.3-11.0)
[2024-10-18 10:58] LABS: CALCIUM, SERUM 8.9 mg/dL (8.5-10.1); CREATININE 1.1 mg/dL (0.6-1.3); SODIUM SERUM 137 mmol/L (136-145); UREA NITROGEN, BLOOD 9 mg/dL (7-18)
[2024-10-18 11:04] LABS: ALCOHOL, BLOOD < 3 mg/dL (0-10); ASPARTATE AMINOTRANSFERASE 47 U/L (15-37); TOTAL PROTEIN, SERUM 9.0 g/dL (6.4-8.2)
[2024-10-18 12:10] LABS: APPEARANCE,URINE CLEAR (CLEAR); BLOOD, URINE NEGATIVE Ery/uL (NEGATIVE); UGLUCOSE NEGATIVE (NEGATIVE)
[2024-10-18 12:11] LABS: LEUKOCYTE ESTERASE ,URINE NEGATIVE (NEGATIVE); NITRITE, URINE NEGATIVE (NEGATIVE)
[2024-10-18 12:18] LABS: ADD URINE CULTURE NO; SQUAMOUS EPITHELIAL CELL,UR Few /HPF (None Seen)
[2024-10-18 12:21] LABS: AMPHETAMINE, URINE POSITIVE (NEGATIVE); BARBITURATE, URINE NEGATIVE (NEGATIVE); BENZODIAZEPINE, URINE NEGATIVE (NEGATIVE); CANNABINOID, URINE NEGATIVE (NEGATIVE); COCCAINE, URINE NEGATIVE (NEGATIVE); OPIATE, URINE NEGATIVE (NEGATIVE)
[2024-10-18 12:27] LABS: EOSINOPHILS % (MANUAL) 5 % (0-4); LYMPHOCYTES % (MANUAL) 43 % (16-48); MONOCYTES % (MANUAL) 12 % (0-11.0); NEUTROPHILS % (MANUAL) 40 (42-76); PLATELET ESTIMATE ADEQUATE
[2024-10-18 15:26] VITALS: BP 128/71; TEMP 98; O2SAT 97
== END 2024-10-18 15:28 ==
LOC: ER 10:38
DX: R45.851 Suicidal ideations (principal); F32.A Depression, unspecified; R44.0 Auditory hallucinations; F17.200 Nicotine dependence, unspecified, uncomplicated; J45.909 Unspecified asthma, uncomplicated; Z20.822 Contact with and (suspected) exposure to COVID-19; Z59.00 Homelessness unspecified
CPT/HCPCS: 36415; 80048-TC; 80076-TC; 81001; 85025-TC; 85027-TC; G0480

== ENCOUNTER 2024-11-05 13:45 | Emergency (ER) | payer OTHER ==
[~2024-11-05] VITALS: Ht 170.2 cm; Wt 59.0 kg
[2024-11-05 13:54] VITALS: TEMP 98
[2024-11-05 14:10] VITALS: BP 117/65; O2SAT 98
[2024-11-05 14:18] LABS: PLATELET COUNT (AUTO) 478 K/uL (150-450); RED BLOOD CELL COUNT(AUTO) 3.84 MIL/uL (4.5-6.0); RED CELL DISTRIBUTION WIDTH 15.2 % (11.5-15.0); WHITE BLOOD COUNT (AUTO) 8.0 K/uL (4.3-11.0)
[2024-11-05 14:27] LABS: CALCIUM, SERUM 8.5 mg/dL (8.5-10.1); CREATININE 1.0 mg/dL (0.6-1.3); SODIUM SERUM 138 mmol/L (136-145); UREA NITROGEN, BLOOD 10 mg/dL (7-18)
[2024-11-05 14:33] LABS: ALCOHOL, BLOOD < 3 mg/dL (0-10); ASPARTATE AMINOTRANSFERASE 18 U/L (15-37); TOTAL PROTEIN, SERUM 8.4 g/dL (6.4-8.2)
[2024-11-05] MEDS ORDERED: SENNOSIDES 8.6 MG TABLET ONE (15:34)
[2024-11-05 16:02] LABS: APPEARANCE,URINE CLEAR (CLEAR); BLOOD, URINE NEGATIVE Ery/uL (NEGATIVE); LEUKOCYTE ESTERASE ,URINE NEGATIVE (NEGATIVE); NITRITE, URINE NEGATIVE (NEGATIVE); UGLUCOSE NEGATIVE (NEGATIVE)
[2024-11-05] MEDS: SENNOSIDES/DOCUSATE SODIUM 1 TAB TABLET PO ONE (16:04)
[2024-11-05] MEDS: SENNOSIDES 8.6 MG TABLET PO ONE (16:19)
[2024-11-05 16:25] LABS: BARBITURATE, URINE NEGATIVE (NEGATIVE); BENZODIAZEPINE, URINE NEGATIVE (NEGATIVE); CANNABINOID, URINE NEGATIVE (NEGATIVE); COCCAINE, URINE NEGATIVE (NEGATIVE); OPIATE, URINE NEGATIVE (NEGATIVE)
[2024-11-05 16:26] LABS: AMPHETAMINE, URINE POSITIVE (NEGATIVE)
[2024-11-05 17:17] LABS: EOSINOPHILS % (MANUAL) 13 % (0-4); LYMPHOCYTES % (MANUAL) 29 % (16-48); MONOCYTES % (MANUAL) 14 % (0-11.0); NEUTROPHILS % (MANUAL) 44 (42-76); PLATELET ESTIMATE INCREASED
== END 2024-11-06 04:29 | disposition left against medical advice (07) ==
LOC: ER 13:45
DX: R45.851 Suicidal ideations (principal); K59.00 Constipation, unspecified; F15.10 Other stimulant abuse, uncomplicated; F17.200 Nicotine dependence, unspecified, uncomplicated; F32.A Depression, unspecified; J45.909 Unspecified asthma, uncomplicated; Z79.899 Other long term (current) drug therapy; Z59.00 Homelessness unspecified; Z20.822 Contact with and (suspected) exposure to COVID-19
CPT/HCPCS: 36415; 74018; 80048-TC; 80076-TC; 85027-TC; G0480

== ENCOUNTER 2024-11-25 11:24 | Emergency (ER) | payer OTHER ==
[~2024-11-25] VITALS: Ht 172.7 cm; Wt 61.2 kg
[2024-11-25 11:49] LABS: PLATELET COUNT (AUTO) 472 K/uL (150-450); RED BLOOD CELL COUNT(AUTO) 3.73 MIL/uL (4.5-6.0); RED CELL DISTRIBUTION WIDTH 15.5 % (11.5-15.0); WHITE BLOOD COUNT (AUTO) 6.8 K/uL (4.3-11.0)
[2024-11-25 11:55] LABS: CALCIUM, SERUM 8.3 mg/dL (8.5-10.1); CREATININE 0.9 mg/dL (0.6-1.3); SODIUM SERUM 139 mmol/L (136-145); UREA NITROGEN, BLOOD 10 mg/dL (7-18)
[2024-11-25 11:56] LABS: APPEARANCE,URINE CLEAR (CLEAR); BLOOD, URINE NEGATIVE Ery/uL (NEGATIVE); LEUKOCYTE ESTERASE ,URINE NEGATIVE (NEGATIVE); NITRITE, URINE NEGATIVE (NEGATIVE); UGLUCOSE NEGATIVE (NEGATIVE)
[2024-11-25 12:01] LABS: ASPARTATE AMINOTRANSFERASE 26 U/L (15-37); TOTAL PROTEIN, SERUM 8.3 g/dL (6.4-8.2)
[2024-11-25 12:02] LABS: ALCOHOL, BLOOD < 3 mg/dL (0-10)
[2024-11-25 12:05] LABS: BARBITURATE, URINE NEGATIVE (NEGATIVE); BENZODIAZEPINE, URINE NEGATIVE (NEGATIVE); CANNABINOID, URINE NEGATIVE (NEGATIVE); COCCAINE, URINE NEGATIVE (NEGATIVE); OPIATE, URINE NEGATIVE (NEGATIVE)
[2024-11-25] MEDS: OLANZAPINE 5 MG TABLET PO ONE (12:05)
[2024-11-25] MEDS ORDERED: OLANZAPINE 5 MG TABLET ONE (12:05)
[2024-11-25 12:08] LABS: AMPHETAMINE, URINE POSITIVE (NEGATIVE)
[2024-11-25 12:14] LABS: ADD URINE CULTURE NO; SQUAMOUS EPITHELIAL CELL,UR 0-2 /HPF (None Seen)
[2024-11-25 12:44] LABS: EOSINOPHILS % (MANUAL) 15 % (0-4); LYMPHOCYTES % (MANUAL) 48 % (16-48); MONOCYTES % (MANUAL) 15 % (0-11.0); NEUTROPHILS % (MANUAL) 22 (42-76); PLATELET ESTIMATE INCREASED
[2024-11-25 12:51] VITALS: BP 121/75; TEMP 98.1; O2SAT 100
== END 2024-11-25 12:51 ==
LOC: ER 11:26
DX: R44.0 Auditory hallucinations (principal); F15.10 Other stimulant abuse, uncomplicated; E87.6 Hypokalemia; F17.200 Nicotine dependence, unspecified, uncomplicated; F31.9 Bipolar disorder, unspecified; J45.909 Unspecified asthma, uncomplicated; Z20.822 Contact with and (suspected) exposure to COVID-19
CPT/HCPCS: 36415; 80048-TC; 80076-TC; 81001; 85027-TC; G0480

== ENCOUNTER 2024-12-11 12:07 | Emergency (ER) | payer OTHER ==
[~2024-12-11] VITALS: Ht 172.7 cm; Wt 59.0 kg
[2024-12-11 12:24] VITALS: TEMP 98.4
[2024-12-11 12:42] LABS: PLATELET COUNT (AUTO) 348 K/uL (150-450); RED BLOOD CELL COUNT(AUTO) 3.97 MIL/uL (4.5-6.0); RED CELL DISTRIBUTION WIDTH 16.1 % (11.5-15.0); WHITE BLOOD COUNT (AUTO) 4.8 K/uL (4.3-11.0)
[2024-12-11 12:54] LABS: CALCIUM, SERUM 8.1 mg/dL (8.5-10.1); CREATININE 1.1 mg/dL (0.6-1.3); SODIUM SERUM 142 mmol/L (136-145); UREA NITROGEN, BLOOD 8 mg/dL (7-18)
[2024-12-11 12:58] LABS: ALCOHOL, BLOOD < 3 mg/dL (0-10); ASPARTATE AMINOTRANSFERASE 33 U/L (15-37); TOTAL PROTEIN, SERUM 8.4 g/dL (6.4-8.2)
[2024-12-11 13:26] LABS: APPEARANCE,URINE CLEAR (CLEAR); BLOOD, URINE NEGATIVE Ery/uL (NEGATIVE); LEUKOCYTE ESTERASE ,URINE NEGATIVE (NEGATIVE); NITRITE, URINE NEGATIVE (NEGATIVE); UGLUCOSE NEGATIVE (NEGATIVE)
[2024-12-11 13:44] LABS: AMPHETAMINE, URINE POSITIVE (NEGATIVE); BARBITURATE, URINE NEGATIVE (NEGATIVE); BENZODIAZEPINE, URINE NEGATIVE (NEGATIVE); CANNABINOID, URINE NEGATIVE (NEGATIVE); COCCAINE, URINE NEGATIVE (NEGATIVE); OPIATE, URINE NEGATIVE (NEGATIVE)
[2024-12-11 13:53] LABS: ADD URINE CULTURE NO
[2024-12-11 13:54] LABS: CALCIUM OXALATE CRYSTALS,UR Many /HPF (None Seen); SQUAMOUS EPITHELIAL CELL,UR 0-2 /HPF (None Seen)
[2024-12-11 14:17] LABS: MONOCYTES % (MANUAL) 15 % (0-11.0); NEUTROPHILS % (MANUAL) 25 (42-76)
[2024-12-11 14:18] LABS: EOSINOPHILS % (MANUAL) 14 % (0-4); LYMPHOCYTES % (MANUAL) 46 % (16-48); PLATELET ESTIMATE ADEQUATE
[2024-12-11 16:00] VITALS: BP 128/75; O2SAT 98
== END 2024-12-11 16:36 ==
LOC: ER 12:14
DX: F23 Brief psychotic disorder (principal); F17.200 Nicotine dependence, unspecified, uncomplicated; F32.A Depression, unspecified; J45.909 Unspecified asthma, uncomplicated; Z79.899 Other long term (current) drug therapy; Z20.822 Contact with and (suspected) exposure to COVID-19
CPT/HCPCS: 36415; 80048-TC; 80076-TC; 81001; 85027-TC; G0480

== ENCOUNTER 2024-12-23 23:54 | Emergency (ER) | payer OTHER ==
[~2024-12-23] VITALS: Ht 177.8 cm; Wt 61.2 kg
[2024-12-24 01:00] LABS: PLATELET COUNT (AUTO) 386 K/uL (150-450); RED BLOOD CELL COUNT(AUTO) 3.90 MIL/uL (4.5-6.0); RED CELL DISTRIBUTION WIDTH 16.3 % (11.5-15.0); WHITE BLOOD COUNT (AUTO) 4.2 K/uL (4.3-11.0)
[2024-12-24 01:08] LABS: APPEARANCE,URINE CLEAR (CLEAR); BLOOD, URINE NEGATIVE Ery/uL (NEGATIVE); LEUKOCYTE ESTERASE ,URINE NEGATIVE (NEGATIVE); NITRITE, URINE NEGATIVE (NEGATIVE); UGLUCOSE NEGATIVE (NEGATIVE)
[2024-12-24 01:09] LABS: CALCIUM, SERUM 8.5 mg/dL (8.5-10.1); CREATININE 1.1 mg/dL (0.6-1.3); SODIUM SERUM 140 mmol/L (136-145); UREA NITROGEN, BLOOD 10 mg/dL (7-18)
[2024-12-24 01:15] LABS: ALCOHOL, BLOOD < 3 mg/dL (0-10); ASPARTATE AMINOTRANSFERASE 42 U/L (15-37); TOTAL PROTEIN, SERUM 8.9 g/dL (6.4-8.2)
[2024-12-24 01:27] LABS: BARBITURATE, URINE NEGATIVE (NEGATIVE); BENZODIAZEPINE, URINE NEGATIVE (NEGATIVE); CANNABINOID, URINE NEGATIVE (NEGATIVE); COCCAINE, URINE NEGATIVE (NEGATIVE); OPIATE, URINE NEGATIVE (NEGATIVE)
[2024-12-24 01:29] LABS: AMPHETAMINE, URINE POSITIVE (NEGATIVE)
[2024-12-24 01:37] LABS: ADD URINE CULTURE NO; SQUAMOUS EPITHELIAL CELL,UR 0-2 /HPF (None Seen)
[2024-12-24 01:57] LABS: EOSINOPHILS % (MANUAL) 11 % (0-4); LYMPHOCYTES % (MANUAL) 36 % (16-48); MONOCYTES % (MANUAL) 14 % (0-11.0); NEUTROPHILS % (MANUAL) 39 (42-76); PLATELET ESTIMATE ADEQUATE
[2024-12-24 05:29] VITALS: BP 123/79; TEMP 98.7; O2SAT 98
== END 2024-12-24 05:29 ==
LOC: ER 23:58
DX: R44.0 Auditory hallucinations (principal); J45.909 Unspecified asthma, uncomplicated; F31.9 Bipolar disorder, unspecified; F17.200 Nicotine dependence, unspecified, uncomplicated; Z20.822 Contact with and (suspected) exposure to COVID-19
CPT/HCPCS: 36415; 80048-TC; 80076-TC; 81001; 85027-TC; 98960; G0480

== ENCOUNTER 2025-01-10 10:22 | Emergency (ER) | payer OTHER ==
[~2025-01-10] VITALS: Ht 170.2 cm; Wt 61.2 kg
[2025-01-10 11:12] LABS: PLATELET COUNT (AUTO) 384 K/uL (150-450); RED BLOOD CELL COUNT(AUTO) 3.60 MIL/uL (4.5-6.0); RED CELL DISTRIBUTION WIDTH 15.9 % (11.5-15.0); WHITE BLOOD COUNT (AUTO) 6.3 K/uL (4.3-11.0)
[2025-01-10 11:28] LABS: APPEARANCE,URINE CLEAR (CLEAR); BLOOD, URINE NEGATIVE Ery/uL (NEGATIVE); LEUKOCYTE ESTERASE ,URINE NEGATIVE (NEGATIVE); NITRITE, URINE NEGATIVE (NEGATIVE); UGLUCOSE NEGATIVE (NEGATIVE)
[2025-01-10 11:34] LABS: ADD URINE CULTURE NO; SQUAMOUS EPITHELIAL CELL,UR Few /HPF (None Seen)
[2025-01-10 11:37] LABS: ASPARTATE AMINOTRANSFERASE 27 U/L (15-37); CALCIUM, SERUM 8.4 mg/dL (8.5-10.1); CREATININE 1.1 mg/dL (0.6-1.3); SODIUM SERUM 140 mmol/L (136-145); TOTAL PROTEIN, SERUM 8.4 g/dL (6.4-8.2); UREA NITROGEN, BLOOD 11 mg/dL (7-18)
[2025-01-10 11:43] LABS: BARBITURATE, URINE NEGATIVE (NEGATIVE); BENZODIAZEPINE, URINE NEGATIVE (NEGATIVE); CANNABINOID, URINE NEGATIVE (NEGATIVE); COCCAINE, URINE NEGATIVE (NEGATIVE); OPIATE, URINE NEGATIVE (NEGATIVE)
[2025-01-10 11:44] LABS: AMPHETAMINE, URINE POSITIVE (NEGATIVE)
[2025-01-10] MEDS ORDERED: CT SWABBABLE VALVE TRANS SET 1 EA INFUS.SET MC ONE (12:04)
[2025-01-10] MEDS ORDERED: IOHEXOL-300 100 ML VIAL IV ONE (12:04)
[2025-01-10] MEDS ORDERED: IV NS 0.9% 250 ML IV ONE (12:04)
[2025-01-10] MEDS ORDERED: MUPI15CR TP (14:35)
[2025-01-10] MEDS ORDERED: CLIN300C12 PO (14:35)
[2025-01-10] MEDS ORDERED: BACI/NEOM/POLY B OINT PKT 1 UDPKT PACKET ONE (14:58)
[2025-01-10] MEDS: BACI/NEOM/POLY B OINT PKT 1 UDPKT PACKET TP ONE (15:01)
[2025-01-10 17:50] VITALS: BP 133/79; O2SAT 98
[2025-01-10] MEDS ORDERED: IBUPROFEN 600 MG TABLET ONE (18:05)
[2025-01-10 18:06] VITALS: TEMP 98
[2025-01-10] MEDS: IBUPROFEN 600 MG TABLET PO ONE (18:06)
== END 2025-01-10 18:22 ==
LOC: ER 10:30
DX: R45.851 Suicidal ideations (principal); F23 Brief psychotic disorder; F15.10 Other stimulant abuse, uncomplicated; F17.200 Nicotine dependence, unspecified, uncomplicated; F31.9 Bipolar disorder, unspecified; J45.909 Unspecified asthma, uncomplicated; L03.818 Cellulitis of other sites; Z20.822 Contact with and (suspected) exposure to COVID-19; Z59.00 Homelessness unspecified
CPT/HCPCS: 99285; 74176; 87426; 85025; 80048; 80076; 81001; 36415; 80143; 80307; J7050; Q9967

== ENCOUNTER 2025-01-23 19:05 | Emergency (ER) | payer OTHER ==
[~2025-01-23 19:05] MED LIST: CLIN300C12 PO; MUPI15CR TP
== END 2025-01-24 00:52 | disposition left against medical advice (07) ==
LOC: ER 19:07
DX: Z53.21 Procedure and treatment not carried out due to patient leaving prior to being seen by health care provider (principal)

== ENCOUNTER 2025-01-24 16:31 | Emergency (ER) | payer OTHER ==
[~2025-01-24] VITALS: Ht 175.3 cm; Wt 59.0 kg
[2025-01-24 17:33] VITALS: BP 127/68; TEMP 98.1; O2SAT 98
[2025-01-24 18:35] LABS: PLATELET COUNT (AUTO) 384 K/uL (150-450); RED BLOOD CELL COUNT(AUTO) 3.66 MIL/uL (4.5-6.0); RED CELL DISTRIBUTION WIDTH 15.7 % (11.5-15.0); WHITE BLOOD COUNT (AUTO) 7.1 K/uL (4.3-11.0)
[2025-01-24 18:38] LABS: APPEARANCE,URINE CLEAR (CLEAR); BLOOD, URINE NEGATIVE Ery/uL (NEGATIVE); LEUKOCYTE ESTERASE ,URINE NEGATIVE (NEGATIVE); NITRITE, URINE NEGATIVE (NEGATIVE); UGLUCOSE NEGATIVE (NEGATIVE)
[2025-01-24 18:42] LABS: ADD URINE CULTURE NO; SQUAMOUS EPITHELIAL CELL,UR None Seen /HPF (None Seen)
[2025-01-24 18:47] LABS: CALCIUM, SERUM 8.3 mg/dL (8.5-10.1); CREATININE 1.1 mg/dL (0.6-1.3); SODIUM SERUM 132 mmol/L (136-145); UREA NITROGEN, BLOOD 11 mg/dL (7-18)
[2025-01-24 18:50] LABS: AMPHETAMINE, URINE NEGATIVE (NEGATIVE); BARBITURATE, URINE NEGATIVE (NEGATIVE); BENZODIAZEPINE, URINE NEGATIVE (NEGATIVE); CANNABINOID, URINE NEGATIVE (NEGATIVE); COCCAINE, URINE NEGATIVE (NEGATIVE); OPIATE, URINE NEGATIVE (NEGATIVE)
[2025-01-24 18:54] LABS: ASPARTATE AMINOTRANSFERASE 18 U/L (15-37); TOTAL PROTEIN, SERUM 8.6 g/dL (6.4-8.2)
== END 2025-01-25 00:35 ==
LOC: ER 16:37
DX: F20.9 Schizophrenia, unspecified (principal); F31.9 Bipolar disorder, unspecified; F17.200 Nicotine dependence, unspecified, uncomplicated; J45.909 Unspecified asthma, uncomplicated
CPT/HCPCS: 36415; 80048-TC; 80076-TC; 81001; 85025-TC